=== PATIENT | male | born 1940 | race Caucasian/White ===

== ENCOUNTER 2020-07-09 18:26 | Inpatient (IN) ==
[2020-07-09 19:23] LABS: ABS Eosinophils 0.1 10^3/ul (0-0.6); ABS Lymphocytes 1.7 10^3/ul (1.0-4.8); ABS Monocytes 0.5 10^3/ul (0-0.8); ABS Neutrophils 3.5 10^3/ul (1.5-7.7); Eosinophil % 1.9 %; Hematocrit 43 % (42-52); Hemoglobin 14.9 g/dL (14.0-18.0); Lymphocyte % 29.3 %; Mean Corpuscular HGB Conc 35 g/dL (31-36); Mean Corpuscular Hemoglobin 32 pg (27-31); Mean Corpuscular Volume 93 fL (80-94); Mean Platelet Volume 8.1 fL (7.4-10.4); Platelet Count 171 10^3/uL (150-450); Red Blood Count 4.66 10^6 /uL (4.18-5.48); Red Cell Distribution Width 14 % (10-15); White Blood Count 5.8 10^3/uL (3.5-10.8)
[2020-07-09 19:32] LABS: Activated Partial Thrombo Time 28.6 seconds (26.0-38.0); INR 0.92 (0.82-1.09)
[2020-07-09 19:38] LABS: ALT 22 U/L (7-52); AST 24 U/L (13-39); Albumin 4.2 g/dL (3.2-5.2); Albumin/Globulin Ratio 1.7 (1-3); Alkaline Phosphatase 49 U/L (34-104); Anion Gap 5 mmol/L (2-11); BUN/Creatinine Ratio 21.6 (8-20); Blood Urea Nitrogen 21 mg/dL (6-24); C Reactive Protein < 1.00 mg/L (<8.01); CO2 Carbon Dioxide 28 mmol/L (22-32); Calcium 9.1 mg/dL (8.6-10.3); Chloride 106 mmol/L (101-111); EGFR African American 90.3 (>60); EGFR Non-African American 74.7 (>60); Globulin 2.5 g/dL (2-4); Glucose 92 mg/dL (70-100); Potassium 4.1 mmol/L (3.5-5.0); Sodium 139 mmol/L (135-145); Total Protein 6.7 g/dL (6.4-8.9)
[2020-07-09] MEDS ORDERED: Iohexol 300 (CONTRAST) 10 ML SDV IV ONE (19:44)
[2020-07-09] MEDS ORDERED: Ondansetron 4 mg VIAL 2 MG/ML 2 ml VIAL IV PRN (21:21)
[2020-07-09] MEDS ORDERED: NS 0.9% 1000 ml BAG 1,000 ML IV SCH (21:30)
[2020-07-10 00:27] LABS: Hematocrit 39 % (42-52); Hemoglobin 13.3 g/dL (14.0-18.0)
[2020-07-10] MEDS ORDERED: NS 0.9% 500 ml BAG 500 ML IV ONE (04:06)
[2020-07-10 04:37] LABS: Hematocrit 34 % (42-52); Hemoglobin 12.1 g/dL (14.0-18.0)
[2020-07-10] MEDS: NS 0.9% 1000 ml BAG 1,000 ML IV SCH ×6 (04:46→23:14)
[2020-07-10] MEDS ORDERED: NS 0.9% 1000 ml BAG 1,000 ML IV ONE (04:47)
[2020-07-10 07:48] LABS: ABS Lymphocytes 0.8 10^3/ul (1.0-4.8); ABS Monocytes 0.3 10^3/ul (0-0.8); ABS Neutrophils 5.3 10^3/ul (1.5-7.7); Eosinophil % 0.3 %; Hematocrit 35 % (42-52); Hemoglobin 12.2 g/dL (14.0-18.0); Lymphocyte % 12.4 %; Mean Corpuscular HGB Conc 35 g/dL (31-36); Mean Corpuscular Hemoglobin 33 pg (27-31); Mean Corpuscular Volume 93 fL (80-94); Mean Platelet Volume 8.1 fL (7.4-10.4); Platelet Count 148 10^3/uL (150-450); Red Blood Count 3.77 10^6 /uL (4.18-5.48); Red Cell Distribution Width 14 % (10-15); White Blood Count 6.5 10^3/uL (3.5-10.8)
[2020-07-10 07:57] LABS: BUN/Creatinine Ratio 23.8 (8-20); Calcium 7.7 mg/dL (8.6-10.3); EGFR African American 112.8 (>60); EGFR Non-African American 93.3 (>60)
[2020-07-10 08:00] LABS: INR 1.03 (0.82-1.09)
[2020-07-10] MEDS ORDERED: Influenza VAC *QUAD* 2020-21* 0.5 ML SYRINGE IM ONE (09:00)
[2020-07-10] MEDS ORDERED: PEG 3000 GI LAVAGE 1 GALLON PO ONE (10:00)
[2020-07-10 10:07] LABS: Hematocrit 36 % (42-52); Hemoglobin 12.2 g/dL (14.0-18.0)
[2020-07-10 15:30] LABS: Hematocrit 38 % (42-52); Hemoglobin 12.8 g/dL (14.0-18.0)
[2020-07-10 22:18] LABS: ABS Basophils 0.1 10^3/ul (0-0.2); ABS Eosinophils 0.1 10^3/ul (0-0.6); ABS Lymphocytes 1.2 10^3/ul (1.0-4.8); ABS Monocytes 0.4 10^3/ul (0-0.8); ABS Neutrophils 3.5 10^3/ul (1.5-7.7); Eosinophil % 1.4 %; Hematocrit 30 % (42-52); Hemoglobin 10.6 g/dL (14.0-18.0); Lymphocyte % 22.6 %; Mean Corpuscular HGB Conc 35 g/dL (31-36); Mean Corpuscular Hemoglobin 32 pg (27-31); Mean Corpuscular Volume 93 fL (80-94); Mean Platelet Volume 7.9 fL (7.4-10.4); Platelet Count 139 10^3/uL (150-450); Red Blood Count 3.28 10^6 /uL (4.18-5.48); Red Cell Distribution Width 14 % (10-15); White Blood Count 5.3 10^3/uL (3.5-10.8)
[2020-07-11] MEDS: NS 0.9% 1000 ml BAG 1,000 ML IV SCH (06:16)
[2020-07-11 06:34] LABS: ABS Eosinophils 0.1 10^3/ul (0-0.6); ABS Monocytes 0.4 10^3/ul (0-0.8); ABS Neutrophils 2.6 10^3/ul (1.5-7.7); Eosinophil % 2.2 %; Hematocrit 30 % (42-52); Hemoglobin 10.8 g/dL (14.0-18.0); Lymphocyte % 24.2 %; Mean Corpuscular HGB Conc 35 g/dL (31-36); Mean Corpuscular Hemoglobin 33 pg (27-31); Mean Corpuscular Volume 92 fL (80-94); Mean Platelet Volume 8.2 fL (7.4-10.4); Platelet Count 127 10^3/uL (150-450); Red Cell Distribution Width 14 % (10-15); White Blood Count 4.1 10^3/uL (3.5-10.8)
[2020-07-11 06:52] LABS: BUN/Creatinine Ratio 13.9 (8-20); Calcium 7.4 mg/dL (8.6-10.3); EGFR African American 114.5 (>60); EGFR Non-African American 94.6 (>60); Potassium 3.6 mmol/L (3.5-5.0)
[2020-07-11 11:51] VITALS: BP 121/69
== END 2020-07-11 14:15 | disposition home or self-care (01) | DRG 379 ==
LOC: ED 18:26 → MED 21:10
PROVIDERS: ADMIT Hospitalist; ATTEND Internal Medicine